=== PATIENT | female | born 1980 | race Caucasian/White ===

== ENCOUNTER 2023-07-21 21:03 | Emergency (ER) | payer BC ==
[~2023-07-21] VITALS: Ht 170.2 cm; Wt 90.9 kg
[2023-07-21 21:10] VITALS: TEMP 98.7
[2023-07-21] MEDS ORDERED: methylPREDNISolone Sod Succ 125 MG/2 ML VIAL IV ONE (21:15)
[2023-07-21] MEDS ORDERED: diphenhydrAMINE 50 MG/ML 1 ML VIAL IV ONE (21:15)
[2023-07-21] MEDS ORDERED: NS 1,000 ML IV ONE (21:15)
[2023-07-21] MEDS ORDERED: PREDNISONE50 MG PO (21:48)
[2023-07-21 22:33] VITALS: BP 110/66; PULSE 74
== END 2023-07-21 22:40 | disposition home or self-care (01) ==
LOC: COL.ER 21:03
DX: T78.1XXA Other adverse food reactions, not elsewhere classified, initial encounter (principal); Z91.040 Latex allergy status; Z91.013 Allergy to seafood; X58.XXXA Exposure to other specified factors, initial encounter
CPT/HCPCS: J1200; J2930; J7030